=== PATIENT | male | born 1990 | race Caucasian/White ===

== ENCOUNTER 2022-03-21 08:06 | Emergency (ER) | payer OTHER ==
[2022-03-21] MEDS ORDERED: Lidocaine 1% 5 ML VIAL INJECT ONE (08:23)
[2022-03-21] MEDS ORDERED: Bacitracin/Neomycin/Polymyxin B Oint 0.9 GM U/D Packet TOP ONE (08:23)
[2022-03-21] MEDS ORDERED: Diphtheria,Pertussis(Acell),Tetanus Vaccine 0.5 ML Syringe IM ONE (08:30)
== END 2022-03-21 08:50 | disposition home or self-care (01) ==
LOC: CC.ED 08:06
DX: S61.215A Laceration without foreign body of left ring finger without damage to nail, initial encounter (principal); F17.210 Nicotine dependence, cigarettes, uncomplicated; Z23 Encounter for immunization; W26.0XXA Contact with knife, initial encounter
CPT/HCPCS: 90471; 90715; 99283-25